=== PATIENT | female | born 1960 | race Caucasian/White ===

== ENCOUNTER → 2016-10-15 | Day surgery (SDC) | payer BC ==
[~2016-10-15] MED LIST: Alum Hydrox/Mag Hydrox/Simeth 15 ML, Lidocaine 2% 15 ML PO ONE; HYDROmorphone 0.5 MG/0.5 ML Syringe IVPUSH ONE; LORazepam 2 MG/ML MDV IVPUSH ONE; Midazolam 1 MG/ML 2 ML SDV ONE; Pantoprazole 40 MG Vial IVPUSH ONE; Potassium Chloride 20 MEQ in Premix Bag 1 BAG IV ONE; Propofol 200 MG/20 ML SDV ONE; Sodium Chloride 0.9% 1,000 ML IV SCH; fentaNYL 100 MCG/2 ML SDV ONE
--- NOTE | 2016-10-15 08:31 | EDM.PDOC ---
[id number] 4d NAUSA Time Seen by Provider: 10/15/16 08:10 Source of Information: Reports: Patient History Limitations: Reports: No Limitations - History of Present Illness INITIAL COMMENTS - FREE TEXT/NARRATIVE: 56-year-old female with chronic anxiety and abdominal pain has had an increasing gastrointestinal symptoms over the past 48 hours. She had nausea vomiting and diarrhea, the vomiting has resolved but the diarrhea persists. She has consistent in significant pain when taking anything oral including liquids. This is actually a chronic problem for her but has been worse over the past 2 days. She feels like her "heart is pounding". No fevers or chills. No recent antibiotics. Location: Reports: Other (Epigastric area of the abdomen) Severity: Moderate Associated Symptoms: Reports: Nausea/Vomiting, Other (Significant anxiety). 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: Psychiatric History: Reports: Anxiety - Infectious Disease History Infectious Disease History: Reports: Chicken Pox - Past Surgical History GI Surgical History: Reports: Cholecystectomy Female Surgical History: Reports: Hysterectomy Other Female Surgeries/Procedures: oopherectomyx2 Musculoskeletal Surgical History: Reports: Shoulder Surgery Social & Family History - Tobacco Use Smoking Status *Q: Current Every Day Smoker Years of Tobacco use: 40 Packs/Tins Daily: 1 Used Tobacco, but Quit: No Second Hand Smoke Exposure: No - Caffeine Use Caffeine Use: Reports: Coffee - Alcohol Use Days Per Week of Alcohol Use: 0 - Recreational Drug Use Recreational Drug Use: No ED ROS GENERAL - Review of Systems Review Of Systems: See Below Constitutional: Denies: Fever, Chills HEENT: Reports: No Symptoms Respiratory: Denies: Shortness of Breath Cardiovascular: Reports: Chest Pain (Pain radiates from the epigastric area up into her chest) GI/Abdominal: Reports: Abdominal Pain, Diarrhea, Nausea, Vomiting : Reports: No Symptoms Skin: Reports: No Symptoms Neurological: Denies: Dizziness, Headache Psychiatric: Reports: Anxiety ED EXAM, GENERAL - Physical Exam Exam: See Below Exam Limited By: No Limitations General Appearance: Alert, Anxious, Mild Distress Eye Exam: Bilateral Eye: Normal Inspection (No jaundice) Head: Atraumatic Respiratory/Chest: No Respiratory Distress, Lungs Clear Cardiovascular: Regular Rate, Rhythm GI/Abdominal: Soft, Tender (She is significantly tender to palpation in the epigastric area and the pain radiates up the chest into her throat with palpation) Course - Vital Signs Last Recorded V/S: Last Vital Signs Temp 98.6 F 10/15/16 12:05 Pulse 77 10/15/16 12:45 Resp 16 10/15/16 12:45 BP 112/69 10/15/16 12:45 Pulse Ox 92 L 10/15/16 12:45 - Orders/Labs/Meds Orders: Active Orders 24 hr Category Date Time Status EKG Documentation Completion [RC] ASDIRECTED Care 10/15/16 08:35 Active ZAHRA TEST [RM] Routine Lab 10/15/16 11:30 Received Sodium Chloride 0.9% [Normal Saline] 1,000 ml Med 10/15/16 08:15 Active IV ASDIRECTED EKG 12 Lead [EK] Routine Ther 10/15/16 08:35 Ordered Medication Orders Sodium Chloride (Normal Saline) 1,000 mls @ 1,000 mls/hr IV ASDIRECTED LEE ANN Last Admin: 10/15/16 08:26 Dose: 1,000 mls/hr Labs: Laboratory Tests 10/15/16 10/15/16 Range/Units 08:26 08:26 WBC 11.4 H (4.5-11.0) K/uL RBC 5.00 (3.30-5.50) M/uL Hgb 16.0 H (12.0-15.0) g/dL Hct 46.2 (36.0-48.0) % MCV 92 (80-98) fL MCH 32 H (27-31) pg MCHC 35 (32-36) % Plt Count 420 H (150-400) K/uL Neut % (Auto) 69 H (36-66) % Lymph % (Auto) 20 L (24-44) % [place] % (Auto) 11 H (2-6) % Eos % (Auto) 0 L (2-4) % Baso % (Auto) 0 (0-1) % Sodium 135 L (140-148) mmol/L Potassium 2.7 L* (3.6-5.2) mmol/L Chloride 95 L (100-108) mmol/L Carbon Dioxide 30 (21-32) mmol/L Anion Gap 12.7 (5.0-14.0) mmol/L BUN 19 H (7-18) mg/dL Creatinine 1.0 (0.6-1.0) mg/dL Est Cr Clr Drug Dosing 61.09 mL/min Estimated GFR (MDRD) 57 L (>60) Glucose 122 H (74-106) mg/dL Calcium 8.7 (8.5-10.1) mg/dL Total Bilirubin 0.7 (0.2-1.0) mg/dL AST 22 (15-37) U/L ALT 31 (12-78) U/L Alkaline Phosphatase 67 (46-116) U/L Total Protein 7.7 (6.4-8.2) g/dL Albumin 4.0 (3.4-5.0) g/dL Globulin 3.7 H (2.3-3.5) g/dL Albumin/Globulin Ratio 1.1 L (1.2-2.2) Amylase 65 (25-115) U/L Lipase 257 (73-393) U/L Meds: Medications Generic Name Dose Route Start Last Admin Trade Name Freq PRN Reason Stop Dose Admin Sodium Chloride 1,000 mls @ 1,000 mls/hr 10/15/16 08:15 10/15/16 08:26 Normal Saline IV 1,000 mls/hr ASDIRECTED LEE ANN Administration Discontinued Medications Generic Name Dose Route Start Last Admin Trade Name Freq PRN Reason Stop Dose Admin Al Hydroxide/Mg Hydroxide 15 0 ml 10/15/16 08:14 10/15/16 08:25 ml/ Lidocaine HCl 15 ml PO 10/15/16 08:15 30 ml ONETIME ONE Administration Fentanyl Confirm 10/15/16 11:16 Sublimaze Administered 10/15/16 11:17 Dose 100 mcg .ROUTE .STK-MED ONE Hydromorphone HCl 0.5 mg 10/15/16 11:10 10/15/16 11:16 Dilaudid IVPUSH 10/15/16 11:11 0.5 mg ONETIME ONE Administration Potassium Chloride 20 meq/ 100 mls @ 50 mls/hr 10/15/16 09:00 10/15/16 09:21 Premix IV 10/15/16 10:59 50 mls/hr ONETIME ONE Administration Lorazepam 1 mg 10/15/16 08:14 10/15/16 08:26 Ativan IVPUSH 10/15/16 08:15 1 mg ONETIME ONE Administration Midazolam HCl Confirm 10/15/16 11:16 Versed 1 Mg/Ml Administered 10/15/16 11:17 Dose 2 mg .ROUTE .STK-MED ONE Pantoprazole Sodium 40 mg 10/15/16 08:14 10/15/16 08:25 Protonix Iv IVPUSH 10/15/16 08:15 40 mg ONETIME ONE Administration Propofol Confirm 10/15/16 11:16 Diprivan 20 Ml Administered 10/15/16 11:17 Dose 200 mg .ROUTE .STK-MED ONE - Re-Assessments/Exams Free Text/Narrative Re-Assessment/Exam: 10/15/16 08:31 EKG showed no acute findings. Patient was given a GI cocktail, an IV was started and she was given 40 mg of Protonix along with IV fluids. She was also given 1 mg of Ativan IV. She was very concerned about her pounding, racing heart while the monitor shows her to be in sinus rhythm 80-88. CBC, CMP, amylase and lipase were obtained. 10/15/16 12:29 Labs returned reassuring however the patient continued to have significant symptoms so surgery was consulted for an EGD. This did confirm diffuse esophagitis and gastritis. Patient was given 0.5 mg of Dilaudid prior to her procedure. She'll be started on 40 mg of omeprazole daily, and was also given 20 0.5 mg alprazolam to use for anxiety every 6 hours as needed until she can get into see her primary provider. A bland diet would be beneficial. Departure - Departure Time of Disposition: 13:00 Disposition: Home, Self-Care 01 Condition: good Clinical Impression: Esophagitis, erosive, Anxiety Gastritis Qualifiers: Gastritis type: unspecified gastritis Chronicity: chronic Gastritis bleeding: without bleeding Qualified Code(s): K29.50 - Unspecified chronic gastritis without bleeding - Discharge Information - My Orders Last 24 Hours: My Active Orders 10/15/16 08:15 Sodium Chloride 0.9% [Normal Saline] 1,000 ml IV ASDIRECTED 10/15/16 08:35 EKG Documentation Completion [RC] ASDIRECTED EKG 12 Lead [EK] Routine - Assessment/Plan Last 24 Hours: My Active Orders 10/15/16 08:15 Sodium Chloride 0.9% [Normal Saline] 1,000 ml IV ASDIRECTED 10/15/16 08:35 EKG Documentation Completion [RC] ASDIRECTED EKG 12 Lead [EK] Routine
[2016-10-15 13:07] VITALS: BP 112/69
--- NOTE | 2016-10-18 13:59 | OR ---
DATE OF PROCEDURE: 10/15/2016 PREOPERATIVE DIAGNOSIS: Epigastric pain. POSTOPERATIVE DIAGNOSES: 1. Epigastric pain. 2. Duodenitis. 3. Gastritis. 4. Gastroesophageal reflux disease. PROCEDURE: Esophagogastroduodenoscopy with duodenal and antral biopsies for CLOtest and for pathology to look for Helicobacter pylori, biopsy of gastroesophageal junction. ANESTHESIA: IV anesthesia with monitored anesthesia care. INDICATIONS: This 56-year-old white female is referred for upper endoscopy. She complains of the severe epigastric pain. She is also experiencing nausea and vomiting. She has been uncomfortable for the past 5 days. She does have a history of using a proton pump inhibitor, but has not done this for several weeks if not months. I counseled her for upper endoscopy with possible biopsy including risks and alternatives, and she gave her informed consent to proceed. DESCRIPTION OF PROCEDURE: The patient was placed in the left lateral decubitus position. IV anesthesia was administered by the Anesthesia Service. Time-out was held. The flexible video Olympus upper endoscope was passed through her mouth, down her esophagus, and into her stomach. The scope was easily passed through the pylorus into the duodenum reaching its third portion. The scope was then slowly withdrawn examining the mucosa throughout. The distal duodenum as well as the duodenal bulb showed erythema consistent with duodenitis. The scope was brought up through the pylorus, there was some erythematous streaking coming from the pylorus consistent with gastritis. We obtained biopsies of the duodenum and the antrum for CLOtest and for pathology to look for Helicobacter pylori. The scope was retroflexed and the most proximal stomach appeared unremarkable, although there was bile in the stomach. This was aspirated free. The scope was straightened and brought up to the GE junction. This was markedly abnormal with evidence of both chronic and acute inflammation present. We obtained multiple totalling six biopsies of the gastroesophageal junction. The scope was then brought proximally up through the esophagus, which appeared inflamed through most of its length. The scope was then removed. She tolerated the procedure well. I have written her for omeprazole 40 mg a day for 2-month supply. She is going to follow up with Dr. Dee, her regular physician. Jose L Ravi MD /[id number]
== END ==
LOC: JP.ED 07:44 → JP.SDS 11:14
PROVIDERS: ATTEND Surgery
DX: K29.50 Unspecified chronic gastritis without bleeding (principal); K21.0 Gastro-esophageal reflux disease with esophagitis; F41.9 Anxiety disorder, unspecified; K22.70 Barrett's esophagus without dysplasia; I10 Essential (primary) hypertension; F17.210 Nicotine dependence, cigarettes, uncomplicated; J45.909 Unspecified asthma, uncomplicated; Z90.49 Acquired absence of other specified parts of digestive tract; Z90.710 Acquired absence of both cervix and uterus; Z98.890 Other specified postprocedural states; Z88.8 Allergy status to other drugs, medicaments and biological substances; Z88.5 Allergy status to narcotic agent; Z79.899 Other long term (current) drug therapy
CPT/HCPCS: 36415; 43239; 80053; 82150; 83690; 85025; 87081; 93005; 96361; 96374; 96375; 99284; A9270; C9113; J1170; J2060; J2250; J2704; J3010; J3480; J7040; 88305; 88312; 88342

== ENCOUNTER 2017-09-29 07:49 | Emergency (ER) | payer BC, OTHER ==
[2017-09-29 08:03] VITALS: BP 150/105
[2017-09-29] MEDS ORDERED: Albuterol 0.083% 2.5 MG/3 ML Neb Soln NEB ONE (09:09)
--- NOTE | 2017-09-29 09:15 | EDM.PDOC ---
ED HPI GENERAL MEDICAL PROBLEM - General Chief Complaint: Respiratory Problem Stated Complaint: CHEST COLD Time Seen by Provider: 09/29/17 09:00 Source of Information: Reports: Patient, Old Records, RN History Limitations: Reports: No Limitations - History of Present Illness INITIAL COMMENTS - FREE TEXT/NARRATIVE: 56 yo female smoker presents with a cough for 2 weeks that has been occasionally productive. Has had a low grade fever on and off. Is allergic to the influenza vaccine she believes. Has not been to the clinic, did call yesterday finally and was not able to get in right away. Some rhinorrhea. Has a remote hx of asthma. 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: Other (see below) (none) Chest Pain Score (Numeric/FACES): 10 - Related Data Allergies Allergy/AdvReac Type Severity Reaction Status Date / Time cephalexin monohydrate Allergy Cannot Verified 09/29/17 09:02 [From Keflex] Remember morphine AdvReac Vomiting Verified 09/29/17 09:02 Home Meds: Home Meds ALPRAZolam [Xanax] 0.5 mg PO QID PRN 01/31/15 [History] Past Medical History Cardiovascular History: Reports: Hypertension Respiratory History: Reports: Asthma, Bronchitis, Recurrent Gastrointestinal History: Reports: Cholelithiasis Other Gastrointestinal History: abdomenal 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: Psychiatric History: Reports: Anxiety - Infectious Disease History Infectious Disease History: Reports: Chicken Pox, Measles, Mumps - Past Surgical History GI Surgical History: Reports: Cholecystectomy Female Surgical History: Reports: Hysterectomy Other Female Surgeries/Procedures: oopherectomyx2 Musculoskeletal Surgical History: Reports: Shoulder Surgery Social & Family History - Tobacco Use Smoking Status *Q: Current Every Day Smoker Years of Tobacco use: 30 Packs/Tins Daily: 0.2 Used Tobacco, but Quit: No Second Hand Smoke Exposure: No - Caffeine Use Caffeine Use: Reports: Soda - Alcohol Use Days Per Week of Alcohol Use: 0 - Recreational Drug Use Recreational Drug Use: No ED ROS GENERAL - Review of Systems Review Of Systems: See Below Constitutional: Reports: Fever (low grade on and off). Denies: Fatigue, Night Sweats, Diaphoresis, Decreased Appetite HEENT: Reports: Rhinitis Respiratory: Reports: Cough Cardiovascular: Reports: No Symptoms GI/Abdominal: Reports: No Symptoms : Reports: No Symptoms Musculoskeletal: Reports: No Symptoms Skin: Reports: No Symptoms Neurological: Reports: No Symptoms ED EXAM, GENERAL - Physical Exam Exam: See Below Exam Limited By: No Limitations General Appearance: Alert, WD/WN, No Apparent Distress Eye Exam: Bilateral Eye: Normal Inspection Ears: Normal External Exam, Normal Canal, Hearing Grossly Normal, Normal TMs Ear Exam: Bilateral Ear: Auricle Normal, Canal Normal, TM normal Nose: Normal Inspection, No Blood, Clear Rhinorrhea Throat/Mouth: Normal Inspection, Normal Lips, Normal Oropharynx, Normal Voice, No Airway Compromise Head: Atraumatic, Normocephalic Neck: Normal Inspection, Supple, Non-Tender Respiratory/Chest: No Respiratory Distress, No Accessory Muscle Use, Other ( frequent dry cough, some exp rhonchi noted.) Cardiovascular: Regular Rate, Rhythm, No Edema Extremities: Normal Inspection, Normal Range of Motion, Non-Tender, No Pedal Edema Neurological: Alert, Oriented, CN II-XII Intact, Normal Cognition, No Motor/ Sensory Deficits Psychiatric: Normal Affect, Normal Mood Skin Exam: Warm, Dry, Intact, Normal Color, No Rash Course - Vital Signs Text/Narrative:: albuterol neb-partial benefit Last Recorded V/S: Last Vital Signs Temp 36.8 C 09/29/17 09:01 Pulse 92 09/29/17 09:01 Resp 18 09/29/17 09:01 BP 150/105 H 09/29/17 09:01 Pulse Ox 97 09/29/17 09:01 - Orders/Labs/Meds Orders: Active Orders 24 hr Category Date Time Status RT Aerosol Therapy [RC] ASDIRECTED Care 09/29/17 09:09 Active Labs: Laboratory Tests 09/29/17 Range/Units 09:16 WBC 11.1 H (4.5-11.0) K/uL RBC 3.99 (3.30-5.50) M/uL Hgb 12.7 D (12.0-15.0) g/dL Hct 38.5 (36.0-48.0) % MCV 97 (80-98) fL MCH 32 H (27-31) pg MCHC 33 (32-36) % Plt Count 335 (150-400) K/uL Meds: Medications Discontinued Medications Generic Name Dose Route Start Last Admin Trade Name Adolph PRN Reason Stop Dose Admin Albuterol 2.5 mg 09/29/17 09:09 09/29/17 09:14 Proventil Neb Soln NEB 09/29/17 09:10 2.5 mg ONETIME ONE Administration Departure - Departure Time of Disposition: 09:40 Disposition: Home, Self-Care 01 Condition: Fair Clinical Impression: Bronchospasm, Bronchitis, Tobacco abuse disorder - Discharge Information Referrals: Arturo Dee MD [Primary Care Provider] - Forms: ED Department Discharge - My Orders Last 24 Hours: My Active Orders 09/29/17 09:09 RT Aerosol Therapy [RC] ASDIRECTED - Assessment/Plan Last 24 Hours: My Active Orders 09/29/17 09:09 RT Aerosol Therapy [RC] ASDIRECTED
== END 2017-09-29 09:56 | disposition home or self-care (01) ==
LOC: JP.ED 07:49
DX: J98.01 Acute bronchospasm (principal); J40 Bronchitis, not specified as acute or chronic; I10 Essential (primary) hypertension; F17.210 Nicotine dependence, cigarettes, uncomplicated; Z88.1 Allergy status to other antibiotic agents; Z88.5 Allergy status to narcotic agent
CPT/HCPCS: 36415; 85027; 94640; 99285